=== PATIENT | male | born 1985 | race Caucasian/White ===

== ENCOUNTER 2024-03-20 06:30 | Emergency (ER) | payer SELFPAY ==
[2024-03-20 06:46] VITALS: BP 124/85; PULSE 70; RESP 20; BMI 26.6
[2024-03-20] MEDS: ONDANSETRON *ODT* 4 MG TABLET SL ONE (07:14)
[2024-03-20] MEDS ORDERED: ONDANSETRON *ODT* 4 MG TABLET ONE (07:14)
[2024-03-20] MEDS: clonazePAM 0.5 MG ODT TABLETS SL ONE (07:19)
[2024-03-20] MEDS ORDERED: clonazePAM 0.5 MG TABLET ONE (07:20)
== END 2024-03-20 07:35 | disposition left against medical advice (07) ==
LOC: FER 06:30
DX: R11.2 Nausea with vomiting, unspecified (principal); M79.10 Myalgia, unspecified site; R68.83 Chills (without fever); F41.9 Anxiety disorder, unspecified
CPT/HCPCS: 99283-25; Q0162